=== PATIENT | male | born 1955 | race Caucasian/White ===

== ENCOUNTER 2021-03-09 10:18 | Emergency (ER) | payer MEDICARE, MEDICAID ==
[~2021-03-09] VITALS: Ht 167.6 cm; Wt 50.0 kg
--- NOTE | 2021-03-09 10:20 | NUR ---
PT CHRISTIANOA FROM HOME FOR C/O ABD PAIN- RLQ & LUQ. PT HAS NEUROFIBROMYTOSIS. PT STATES HE FEELS CONSTIPATED WELL, LAST BM 03/09. PT RECEVIED 10MG MORPHINE [employer]. PT [id number]. CHANGED INTO GOWN, MONITORS IN PLACE. CALL LIGHT WITHIN REACH.
--- NOTE | 2021-03-09 10:42 | NUR ---
ERP AT BS FOR EVAL
[2021-03-09] MEDS ORDERED: HYDROmorphone 2 MG/ML, 1ML ONE (10:58)
[2021-03-09] MEDS ORDERED: SODIUM CHLORIDE FLUSH 10ML SYR IVF ONE (11:00)
[2021-03-09] MEDS ORDERED: PLEASE ENTER ALLERGIES MC SCH (11:00)
[2021-03-09] MEDS ORDERED: HYDROmorphone 1 MG/ML, 1ML INJ IV ONE (11:00)
[2021-03-09 11:09] LABS: BASOPHILS % (AUTO) 1 % (0-1); EOSINOPHILS % (AUTO) 0 % (1-7); LYMPHOCYTES % (AUTO) 12 % (22-44); MEAN CORPUSCULAR HEMOGLOBIN 28.8 pg (27.5-34.5); MEAN CORPUSCULAR HGB CONC 32.6 g/dL (33.2-36.2); MEAN PLATELET VOLUME 8.8 fL (7.4-10.4); MONOCYTES % (AUTO) 9 % (2-9); NEUTROPHILS % (AUTO) 78 % (42-75); PLATELET COUNT 153 x10^3/uL (130-400); RED BLOOD COUNT 5.05 x10^6/uL (4.38-5.82); RED CELL DISTRIBUTION WIDTH 15.4 % (9.4-14.8)
--- NOTE | 2021-03-09 11:14 | NUR ---
PT MEDICATED PER EMAR. URINE SAMPLE TAKEN. PT RESTING ON GURNEY, WATCHING TV. CALL LIGHT WITHIN REACH, BED IN LOWEST POSITION, BED RAILS UP X2
[2021-03-09 11:21] LABS: MICROSCOPIC AUTO
[2021-03-09 11:25] LABS: ALANINE AMINOTRANSFERASE 16 U/L (12-78); ALBUMIN 3.3 g/dL (3.4-5.0); ALKALINE PHOSPHATASE 107 U/L (45-117); ANION GAP 4 mmol/L (5-15); BILIRUBIN,TOTAL 0.2 mg/dL (0.2-1.0); CALCIUM 8.6 mg/dL (8.5-10.1); CHLORIDE 111 mmol/L (98-107); CREATININE 1.44 mg/dL (0.7-1.3); TOTAL PROTEIN 6.3 g/dL (6.4-8.2)
--- NOTE | 2021-03-09 11:40 | NUR ---
PT TO CT
[2021-03-09] MEDS ORDERED: OMNIPAQUE 350 MG/ML, 100ML BOTTLE ONE (11:46)
--- NOTE | 2021-03-09 11:49 | NUR ---
pt back from ct resting on gurney watching tv, connected to monitors, call light within reach. bed in lowest position, bed rails up x2
[2021-03-09 12:48] VITALS: BP 113/65
--- NOTE | 2021-03-09 13:35 | NUR ---
Patient given discharge instructions and rx, they have confirmed that they understand the instructions. Patient ambulatory with steady gait.
== END 2021-03-09 13:37 | disposition home or self-care (01) ==
LOC: ED 10:52
DX: K59.00 Constipation, unspecified (principal); G89.29 Other chronic pain; R10.12 Left upper quadrant pain; R10.32 Left lower quadrant pain; R00.0 Tachycardia, unspecified
CPT/HCPCS: 36415; 74177; 80053; 81001; 83605; 83690; 85025; 87086; 93005; 96374; 99285; J1170; Q9967

== ENCOUNTER 2021-04-06 10:30 | Emergency (ER) | payer MEDICARE, MEDICAID ==
[~2021-04-06] VITALS: Ht 167.6 cm; Wt 50.0 kg
--- NOTE | 2021-04-06 10:40 | NUR ---
md is at the bedside for consult/assessment.
[2021-04-06] MEDS ORDERED: ONDANSETRON 2MG/ML, 2ML IVPush ONE (11:00)
[2021-04-06] MEDS ORDERED: SODIUM CHLORIDE 0.9% 1,000 ML IV ONE (11:00)
[2021-04-06] MEDS ORDERED: HYDROmorphone 2 MG/ML, 1ML IV ONE (11:00)
[2021-04-06] MEDS ORDERED: SODIUM CHLORIDE FLUSH 10ML SYR IVF ONE (11:00)
--- NOTE | 2021-04-06 11:01 | NUR ---
xr is at the bedside for study
[2021-04-06] MEDS: PLEASE ENTER HEIGHT AND WEIGHT MC SCH ×2 (11:02→11:29)
[2021-04-06 11:03] LABS: BASOPHILS % (AUTO) 1 % (0-1); EOSINOPHILS % (AUTO) 0 % (1-7); LYMPHOCYTES % (AUTO) 14 % (22-44); MEAN CORPUSCULAR HEMOGLOBIN 29.6 pg (27.5-34.5); MEAN CORPUSCULAR HGB CONC 33.5 g/dL (33.2-36.2); MEAN PLATELET VOLUME 9.1 fL (7.4-10.4); MONOCYTES % (AUTO) 9 % (2-9); NEUTROPHILS % (AUTO) 77 % (42-75); PLATELET COUNT 143 x10^3/uL (130-400); RED BLOOD COUNT 4.95 x10^6/uL (4.38-5.82)
[2021-04-06] MEDS ORDERED: HYDROmorphone 2 MG/ML, 1ML ONE ×2 (11:09→13:50)
[2021-04-06] MEDS ORDERED: ONDANSETRON 2MG/ML, 2ML ONE ×2 (11:09→13:50)
[2021-04-06 11:14] LABS: ALANINE AMINOTRANSFERASE 15 U/L (12-78); ALBUMIN 3.3 g/dL (3.4-5.0); ANION GAP 4 mmol/L (5-15); CALCIUM 8.3 mg/dL (8.5-10.1); CHLORIDE 112 mmol/L (98-107); CREATININE 1.34 mg/dL (0.7-1.3)
[2021-04-06 11:16] LABS: ALKALINE PHOSPHATASE 99 U/L (45-117); BILIRUBIN,TOTAL 0.2 mg/dL (0.2-1.0); TOTAL PROTEIN 6.2 g/dL (6.4-8.2)
--- NOTE | 2021-04-06 11:27 | NUR ---
pt to [facility] w tech
[2021-04-06] MEDS ORDERED: OMNIPAQUE 350 MG/ML, 100ML BOTTLE ONE (11:42)
[2021-04-06 12:10] LABS: MICROSCOPIC INDICATED
[2021-04-06] MEDS ORDERED: CEFTRIAXONE 1,000 MG in DEXTROSE 5% 50 ML IVPB ONE (14:00)
[2021-04-06] MEDS ORDERED: HYDROmorphone 2 MG/ML, 1ML IVPush PRN (14:00)
--- NOTE | 2021-04-06 14:01 | NUR ---
medicated per mar. we will reassess after medications for further disposition.
[2021-04-06 14:02] VITALS: BP 125/50
--- NOTE | 2021-04-06 14:36 | NUR ---
umer (rn) is assuming care of this pt while i have a lunch break. sbar was exchanged at the bedside.
== END 2021-04-06 15:55 | disposition home or self-care (01) ==
LOC: ED 10:41
DX: N39.0 Urinary tract infection, site not specified (principal); M79.671 Pain in right foot
CPT/HCPCS: 36415; 73630; 74177; 80053; 81001; 83690; 85025; 87086; 93005; 96374; 96375; 96376; 99285; J0696; J1170; J2405; J7030; Q9967